=== PATIENT | male | born 1990 | race African-American/Black ===

== ENCOUNTER 2024-11-01 10:30 | Emergency (ER) | payer OTHER ==
[~2024-11-01] VITALS: Ht 167.6 cm; Wt 66.4 kg
[2024-11-01 10:49] VITALS: TEMP 97.4
[2024-11-01] MEDS: ACETAMINOPHEN 325 MG TABLET PO ONE (13:20)
[2024-11-01 13:37] VITALS: BP 130/90; PULSE 85; RESP 16; O2SAT 98
== END 2024-11-01 14:33 | disposition left against medical advice (07) ==
LOC: EMS 10:42
DX: F10.129 Alcohol abuse with intoxication, unspecified (principal); F14.90 Cocaine use, unspecified, uncomplicated; Z53.29 Procedure and treatment not carried out because of patient's decision for other reasons; Y90.9 Presence of alcohol in blood, level not specified
CPT/HCPCS: 99283